=== PATIENT | female | born 1975 | race Two or more races ===

== ENCOUNTER 2020-08-08 11:08 | Emergency (ER) | payer OTHER ==
[~2020-08-08] VITALS: Ht 162.6 cm; Wt 66.0 kg
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
--- NOTE | 2020-08-08 12:55 | NUR ---
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
--- NOTE | 2020-08-08 13:30 | NUR ---
PATIENT TO IMAGING.
--- NOTE | 2020-08-08 13:49 | NUR ---
PATIENT BACK FROM X-RAY, RESTING IN GURNEY WITH EYES CLOSED, RESP EVEN AND UNLABORED, SIGNIFICANT OTHER AT BEDSIDE, VSS, CALL LIGHT WITHIN REACH.
--- NOTE | 2020-08-08 15:28 | NUR ---
ERMD AT BEDSIDE TO DISCUSS POC.
[2020-08-08 15:38] VITALS: BP 131/75
--- NOTE | 2020-08-08 15:50 | NUR ---
Patient and significant other given discharge instructions and prescription and they have confirmed that they understand the instructions, all questions answered. Patient stable and ambulatory with steady gait from ED to private vehicle.
== END 2020-08-08 15:51 | disposition home or self-care (01) ==
LOC: ED 15:00
DX: S60.211A Contusion of right wrist, initial encounter (principal); S16.1XXA Strain of muscle, fascia and tendon at neck level, initial encounter; G89.11 Acute pain due to trauma; M54.5 Low back pain; M54.6 Pain in thoracic spine; M79.651 Pain in right thigh; R55 Syncope and collapse; V49.49XA Driver injured in collision with other motor vehicles in traffic accident, initial encounter; Y93.89 Activity, other specified; Y92.488 Other paved roadways as the place of occurrence of the external cause; Y99.8 Other external cause status
CPT/HCPCS: 70450; 71046; 72072; 72110; 72125; 99285